=== PATIENT | female | born 1945 | race Two or more races ===

== ENCOUNTER 2019-10-28 13:07 | Outpatient (CLI) | payer OTHER ==
[~2019-10-28 13:07] MED LIST: COZAAR100 MG; DICLOFENAC SODI50 MG PO; MEDROLPACK PO; NORFLEX100MG PO; PROTONIX40 M1; PROTONIX40 MG PO; RE CHLORDIAZEP1 EACH PO; SIMVASTATIN20 MG; SYNTHROID88 MCG; ZANTAC150 M3 PO
== END 2019-10-28 13:16 | disposition home or self-care (01) ==
LOC: RAD 13:07
PROVIDERS: ATTEND Orthopaedic Surgery
DX: M25.551 Pain in right hip (principal); M25.552 Pain in left hip; M54.5 Low back pain

== ENCOUNTER 2019-11-10 15:02 | Outpatient (CLI) | payer OTHER | END 2019-11-10 15:09 | disposition home or self-care (01) | LOC: NUCLEAR 15:02 | PROVIDERS: ATTEND Orthopaedic Surgery | DX: M81.0 Age-related osteoporosis without current pathological fracture (principal) ==

== ENCOUNTER → 2019-11-22 07:19 | Outpatient (CLI) | payer OTHER | END | disposition home or self-care (01) | LOC: LAB 07:19 | PROVIDERS: ATTEND Orthopaedic Surgery | DX: E88.89 Other specified metabolic disorders (principal); E21.2 Other hyperparathyroidism; E55.9 Vitamin D deficiency, unspecified; M85.88 Other specified disorders of bone density and structure, other site; E56.1 Deficiency of vitamin K ==

== ENCOUNTER 2020-06-19 10:40 | Emergency (ER) | payer OTHER ==
[~2020-06-19] VITALS: Ht 154.9 cm; Wt 62.6 kg
[2020-06-19] MEDS ORDERED: XANAX1 MG (10:47)
[2020-06-19] MEDS ORDERED: NEURONTIN300 MG (10:48)
[2020-06-19] MEDS ORDERED: XANAX0.25 MG PO (11:22)
== END 2020-06-19 11:24 | disposition home or self-care (01) ==
LOC: ER 10:40
DX: G47.09 Other insomnia (principal); F41.8 Other specified anxiety disorders

== ENCOUNTER 2020-12-27 09:26 | Emergency (ER) | payer OTHER ==
[~2020-12-27] VITALS: Ht 152.4 cm; Wt 62.1 kg
[~2020-12-27 09:26] MED LIST changes: +NEURONTIN300 MG; +XANAX0.25 MG PO; +XANAX1 MG
[2020-12-27] MEDS ORDERED: COZAAR25 MG PO (09:50)
[2020-12-27] MEDS ORDERED: GABAPENTIN100 M2 PO (09:51)
[2020-12-27] MEDS ORDERED: PEPCID AC20 MG (09:51)
[2020-12-27] MEDS ORDERED: SYNTHROID100 MCG PO (09:52)
[2020-12-27] MEDS ORDERED: CELEBREX200MG PO (09:52)
[2020-12-27] MEDS ORDERED: PAXIL20 MG (09:53)
[2020-12-27] MEDS ORDERED: CLARITIN10 M1 PO (13:45)
[2020-12-27] MEDS ORDERED: ZITHROMAX500 MG PO (13:45)
== END 2020-12-27 14:51 | disposition home or self-care (01) ==
LOC: ER 09:26
DX: T78.49XA Other allergy, initial encounter (principal); X58.XXXA Exposure to other specified factors, initial encounter; Z20.822 Contact with and (suspected) exposure to COVID-19

== ENCOUNTER 2022-11-23 11:26 | Emergency (ER) | payer OTHER ==
[~2022-11-23] VITALS: Ht 154.9 cm; Wt 54.4 kg
[~2022-11-23 11:26] MED LIST changes: +CELEBREX200MG PO; +CLARITIN10 M1 PO; +COZAAR25 MG PO; +GABAPENTIN100 M2 PO; +PAXIL20 MG; +PEPCID AC20 MG; +SYNTHROID100 MCG PO; +ZITHROMAX500 MG PO
== END 2022-11-23 20:52 | disposition home or self-care (01) ==
LOC: ER 11:26
DX: B02.9 Zoster without complications (principal); L03.211 Cellulitis of face
CPT/HCPCS: 36415; 96365; 96366; 99282; J3490; J7030

== ENCOUNTER 2023-10-12 20:27 | Inpatient (IN) | payer OTHER ==
[~2023-10-12] VITALS: Ht 154.9 cm; Wt 59.0 kg
[2023-10-12] MEDS ORDERED: GABAPENTIN600 MG PO (20:50)
[2023-10-12] MEDS ORDERED: PANTOPRAZOLE SO40 MG PO (20:50)
[2023-10-12] MEDS ORDERED: QUETIAPINE FUMA50 MG PO (20:51)
[2023-10-12] MEDS ORDERED: 0.9 % SODIUM CHLORIDE 1,000 ML IV SCH (21:30)
[2023-10-12] MEDS ORDERED: CIPROFLOXACIN IN 5 % DEXTROSE 400 MG/200 ML PIGGYBAG IV ONE (21:45)
[2023-10-12 21:57] LABS: HEMATOCRIT 34.8 % (36.0-45.00); HEMOGLOBIN 12.1 g/dL (12.0-15.00); MEAN CELL VOLUME 90.9 fL (80.00-100.00); MEAN CORPUSCULAR HEMOGLOBIN 31.6 pg (27.00-32.0); MEAN CORPUSCULAR HGB CONC 34.7 g/dl (32.0-36.0); PLATELET COUNT 429 K/uL (150-450); RED BLOOD COUNT 3.83 M/uL (4.00-6.00); RED CELL DISTRIBUTION WIDTH 13.5 % (11.5-14.5)
[2023-10-12 22:34] LABS: PH,URINE 7.5 (5.0-8.0); URINE APPEARANCE Clear; URINE BILIRRUBIN Negative (NEGATIVE); URINE BLOOD Negative; URINE COLOR Yellow; URINE GLUCOSE Negative (NEGATIVE); URINE LEUKOCYTE Trace; URINE NITRATE Negative; URINE PROTEIN Negative (NEGATIVE)
[2023-10-12 22:38] LABS: URINE BACTERIA 22.6 uL (0.0-1933); URINE EPITHELIAL CELLS 2.1 uL (0.0-38.8); URINE RBC 7.9 uL (0.0-20.8)
[2023-10-12 22:55] LABS: CREATININE SERUM 0.52 mg/dL (0.55-1.02); GFR 113.46
[2023-10-12 23:00] LABS: POTASSIUM 5.52 mEq/L (3.5-5.1)
[2023-10-13] MEDS ORDERED: KETOROLAC TROMETHAMINE 30 MG VIAL IV ONE (04:15)
[2023-10-13] MEDS ORDERED: HALOPERIDOL LACTATE 5 MG/ML AMPUL IM PRN (08:45)
[2023-10-13] MEDS ORDERED: MEROPENEM 500 MG/VIAL VIAL IV SCH ×2 (09:00→18:00)
[2023-10-13] MEDS ORDERED: ALLERGY RELIEF10 M1 (10:12)
[2023-10-13] MEDS ORDERED: VANCOMYCIN HCL 5 MG/ML REDILUIDO IV SCH (17:00)
[2023-10-14 07:28] LABS: HEMATOCRIT 28.3 % (36.0-45.00); HEMOGLOBIN 9.9 g/dL (12.0-15.00); MEAN CELL VOLUME 92.1 fL (80.00-100.00); MEAN CORPUSCULAR HEMOGLOBIN 32.4 pg (27.00-32.0); MEAN CORPUSCULAR HGB CONC 35.2 g/dl (32.0-36.0); PLATELET COUNT 321 K/uL (150-450); RED BLOOD COUNT 3.07 M/uL (4.00-6.00); RED CELL DISTRIBUTION WIDTH 13.6 % (11.5-14.5)
[2023-10-14 08:05] LABS: ERYTHROCYTE SEDIMENTATION RATE 4 mm/hr
[2023-10-14 08:14] LABS: ALBUMIN 2.4 gm/dL (3.4-5.0); BILIRUBIN TOTAL 0.46 mg/dL (0.3-1.2); CREATININE SERUM 0.38 mg/dL (0.55-1.02); GFR 162.94; GLOBULINA 2.6 G/DL (2.4-3.5); MAGNESIUM 1.6 mg/dL (1.8-2.4); PHOSPHOROUS 3.2 mg/dL (2.5-4.9); POTASSIUM 4.21 mEq/L (3.5-5.1)
[2023-10-14 08:15] LABS: C-REACTIVE PROTEIN 0.78 MG/DL (0.00-0.29)
[2023-10-15] MEDS ORDERED: QUETIAPINE FUMARATE 25 MG TABLET PO SCH (21:00)
[2023-10-15] MEDS ORDERED: GABAPENTIN 600 MG TABLET PO SCH (21:00)
[2023-10-15] MEDS ORDERED: ALPRAzolam 1 MG TABLET PO SCH (21:00)
[2023-10-16] MEDS ORDERED: LEVOTHYROXINE SODIUM 88 MCG TABLET PO SCH (06:00)
[2023-10-16] MEDS ORDERED: PAROXETINE HCL 20 MG TABLET PO SCH (09:00)
[2023-10-16] MEDS ORDERED: PANTOPRAZOLE SODIUM 40 MG TABLET.DR PO SCH (09:00)
[2023-10-16] MEDS ORDERED: CELECOXIB 200 MG CAPSULE PO SCH (09:00)
[2023-10-16] MEDS ORDERED: LOSARTAN POTASSIUM 25 MG TABLET PO SCH (09:00)
[2023-10-17] MEDS ORDERED: MAGNESIUM HYDROXIDE 30 ML BLIST.PACK PO NR (19:00)
[2023-10-17] MEDS ORDERED: MINERAL OIL 30 ML BLIST.PACK PO NR (19:00)
[2023-10-17] MEDS ORDERED: LACTULOSE 20 G/30 ML BLIST.PACK PO NR (19:00)
[2023-10-18] MEDS ORDERED: LACTULOSE 20 G/30 ML BLIST.PACK PO SCH (09:00)
[2023-10-20 21:30] LABS: CALCIUM 8.2 mg/dL (8.5-10.1); GFR 222.58; POTASSIUM 3.94 mEq/L (3.5-5.1)
[2023-10-20 21:32] LABS: CREATININE SERUM 0.29 mg/dL (0.55-1.02)
[2023-10-21 05:03] LABS: HEMATOCRIT 30.7 % (36.0-45.00); MEAN CELL VOLUME 90.2 fL (80.00-100.00); MEAN CORPUSCULAR HGB CONC 35.4 g/dl (32.0-36.0); PLATELET COUNT 421 K/uL (150-450); RED CELL DISTRIBUTION WIDTH 13.3 % (11.5-14.5)
[2023-10-21 05:21] LABS: HEMOGLOBIN 10.9 g/dL (12.0-15.00)
[2023-10-21] MEDS ORDERED: FUROsemide 40 MG/4 ML VIAL IV NR (07:45)
[2023-10-21] MEDS ORDERED: DIPHENHYDRAMINE HCL 50 MG/ML VIAL 1ML IV SCH (09:00)
[2023-10-21] MEDS ORDERED: FUROsemide 20 MG/2 ML VIAL IV SCH (09:00)
[2023-10-21] MEDS ORDERED: IPRATROPIUM BROMIDE 0.5 MG/2.5 ML AMPUL.NEB IH SCH (09:00)
[2023-10-21 10:07] LABS: ABG PH 7.477 (7.35-7.45); ABG PO2 77.8 mmHg (80-100); ABG pCO2 34.9 mmHg (35-45); BASE EXCESS 2.1 mmol/l; BICARBONATE 25.2 mmol/l (23-25); SaO2 96.4 %; Tco2 26.3 mmol/l; allen test SATISFACTORY; puncture site RADIAL LEFT
[2023-10-21 10:08] LABS: o2 21 %
[2023-10-21] MEDS ORDERED: QUETIAPINE FUMARATE 25 MG TABLET PO ONE (21:06)
[2023-10-22] MEDS ORDERED: FUROsemide 40 MG/4 ML VIAL IV NR (08:30)
== END 2023-10-22 16:26 | disposition home or self-care (01) | DRG 572 ==
LOC: ER 20:27 → SEC-K 10-13 09:20 → MEDI 10-13 09:20 → O/R 10-13 10:12 → SEC-K 10-13 10:13 → MEDI 10-13 10:39
PROVIDERS: Emergency Medicine; Internal Medicine Infectious Disease; ADMIT Internal Medicine; ATTEND Internal Medicine
PROC: 0JD70ZZ Extraction of Back Subcutaneous Tissue and Fascia, Open Approach (ICD-10-PCS; 2023-10-13)
PROC: 0JB90ZZ Excision of Buttock Subcutaneous Tissue and Fascia, Open Approach (ICD-10-PCS; principal; 2023-10-14)
PROC: BR3CYZZ Magnetic Resonance Imaging (MRI) of Pelvis using Other Contrast (ICD-10-PCS; 2023-10-15)
PROC: 0JD70ZZ Extraction of Back Subcutaneous Tissue and Fascia, Open Approach (ICD-10-PCS; 2023-10-22)
DX: L89.153 Pressure ulcer of sacral region, stage 3 (principal); L08.9 Local infection of the skin and subcutaneous tissue, unspecified; B95.2 Enterococcus as the cause of diseases classified elsewhere; B96.89 Other specified bacterial agents as the cause of diseases classified elsewhere; I10 Essential (primary) hypertension; E03.9 Hypothyroidism, unspecified; G30.9 Alzheimer's disease, unspecified; F02.80 Dementia in other diseases classified elsewhere, unspecified severity, without behavioral disturbance, psychotic disturbance, mood disturbance, and anxiety; Z74.01 Bed confinement status
CPT/HCPCS: 72196